=== PATIENT | female | born 1995 | race Caucasian/White ===

== ENCOUNTER 2019-02-24 18:54 | Inpatient (IN) | payer BC, MEDICAID | END 2019-02-26 13:00 | disposition home or self-care (01) | LOC: WSo 18:54 → LDRP 23:30 → WSo 19:22 → LDRP 19:22 ==

== ENCOUNTER 2021-01-29 16:42 | Emergency (ER) | payer BC, MEDICAID ==
[~2021-01-29] VITALS: Ht 175 cm; Wt 79.0 kg
[~2021-01-29 16:42] MED LIST: IBUP-844 PO
--- NOTE | 2021-01-29 18:15 | ED Abdominal Pain ---
General Chief Complaint: Abdominal/GI Problems Stated Complaint: FALL / R SIDE PAIN Nursing Triage Note: patient states she fell x10 days ago off a bar stool, patient states initially had bruising and rt arm pain. states side pain is not getting any better. Sepsis Screen: No Definite Risk Source of Information: Patient Exam Limitations: No Limitations History of Present Illness Date Seen by Provider: Jan 29, 2021 Time Seen by Provider: 18:04 Initial Comments Patient is a 26-year-old female with multiple complaints today. She presents complaining of some right lower rib pain/flank pain over the course of the last 10 days. Patient states that she fell off a barstool and then fell onto the stool injuring her right ribs. She states she feels little short of breath. Patient has a longstanding history of schizoaffective disorder with anxiety and states that she has been off meds recently. She states she has felt anxious which has caused her shortness of breath which has caused again increased anxiety. She also tells me that she has had some urinary incontinence over the course of the last couple of weeks with progressive vaginal discharge. She denies dysuria, urgency or frequency but states that she is concerned she might have an infection. 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 Patient states that she smoked marijuana to try and alleviate her right rib pain but it did not help it just made her sleepy. She also states that she took some leftover hydrocodone that did not work for her pain as well. Patient denies any auditory or visual hallucinations currently. She does admit to some paranoia. No admitted suicidal or homicidal ideation. Patient is concerned that she may be as well. Last menstrual cycle was approximately 1 month ago. Patient denies any recent fevers, chills, cough congestion. No nausea, vomiting or diarrhea. All other review of systems reviewed and negative except as stated. Timing/Duration: 1 Week Severity/Quality: Moderate Location: RUQ Radiation: Back, Flank Modifying Factors: Improves With Coughing Allergies and Home Medications Allergies Coded Allergies: No Known Drug Allergies (Unverified , 02/24/19) Home Medications Ibuprofen 600 Mg Tablet, 600 MG PO Q6H PRN for PAIN-MODERATE Prescribed by: JOSEPH BROWN on 02/26/19 0953 Patient Home Medication List Home Medication List Reviewed: Yes Review of Systems Review of Systems Constitutional: see HPI EENTM: No Symptoms Reported Respiratory: SOA at Rest Cardiovascular: No Symptoms Reported Gastrointestinal: Other ("Bloated abdomen") Genitourinary: Discharge, Incontinence Musculoskeletal: other (Right lower rib pain/flank pain) Skin: other (Bruising over the course of the last couple of weeks) Psychiatric/Neurological: Anxiety Endocrine: No Symptoms Reported All Other Systems Reviewed Negative Unless Noted: Yes Past Kfvvifc-Mytfdy-Mkxivo Hx Patient Social History Alcohol Use: Occasionally Uses Drug of Choice: smoked meth, marjuiana Smoking Status: Current Everyday Smoker Type Used: Cigarettes 2nd Hand Smoke Exposure: Yes Recent Infectious Disease Expo: No Recent Hopitalizations: No Seasonal Allergies Seasonal Allergies: No Past Medical History Surgeries: Yes (hemroidectomy, D&E, D&C) Respiratory: No Cardiac: No Neurological: No Genitourinary: No Gastrointestinal: No Musculoskeletal: No Endocrine: No HEENT: No Cancer: No Psychosocial: Yes Anxiety Integumentary: No Blood Disorders: No Family Medical History Patient reports no known family medical history. Physical Exam Vital Signs Vital Signs - First Documented 01/29/21 17:16 Temp 36.9 Pulse 80 Resp 20 B/P (MAP) 118/73 (88) O2 Delivery Room Air Capillary Refill : Less Than 3 Seconds Height/Weight/BMI Height: 5'8.00" Weight: 226lbs. 8.0oz. [id number]; 25.00 BMI Method: General Appearance: WD/WN, no apparent distress HEENT: PERRL/EOMI, normal ENT inspection Respiratory: lungs clear, normal breath sounds, no respiratory distress, no accessory muscle use Cardiovascular: regular rate, rhythm Gastrointestinal: soft, other (Patient has tenderness in the right upper quadrant/right flank over the lowest ribs. This pain radiates into the back on the right over ribs 11 and 12 along the rib margin) Back: normal inspection, CVA tenderness (R) Neurologic/Psychiatric: alert, normal mood/affect, oriented x 3 Skin: normal color, warm/dry, other (Bruising noted along the length of the left lateral thigh; no bruising of the abdomen or right flank) Progress/Results/Core Measures Results/Orders Lab Results Laboratory Tests Test 01/29/21 18:30 Range/Units Urine Color YELLOW Urine Clarity CLEAR Urine pH 6.0 5-9 Urine Specific Emery 1.015 L 1.016-1.022 Urine Protein NEGATIVE NEGATIVE Urine Glucose (UA) NEGATIVE NEGATIVE Urine Ketones NEGATIVE NEGATIVE Urine Nitrite NEGATIVE NEGATIVE Urine Bilirubin NEGATIVE NEGATIVE Urine Urobilinogen NORMAL < = 1.0 MG/DL Urine Leukocyte Esterase NEGATIVE NEGATIVE Urine RBC (Auto) NEGATIVE NEGATIVE Urine Test NEGATIVE NEGATIVE My Orders Orders - NANCY CRUZ MD Urinalysis Dipstick Only (01/29/21 18:15) Hcg,Qualitative Urine (01/29/21 18:15) Neisseria Gonorrhea Swab (01/29/21 18:15) Chest Pa/Lat (2 View) (01/29/21 19:14) Vital Signs/I&O 01/29/21 17:16 Temp 36.9 Pulse 80 Resp 20 B/P (MAP) 118/73 (88) O2 Delivery Room Air Blood Pressure Mean: 88 Progress Progress Note : Time: 19:43 Progress Note Patient seen and examined, urine test is negative urinalysis is clear. Patient is complaining of large amounts of copious vaginal discharge with some dysfunctional uterine bleeding over the course of the last couple of months. Patient states that she is having "extra periods". She is concerned about an infection. Patient self swab for GC chlamydia and is treated with 250 mg Rocephin IM as well as 1 g of Zithromax. I advised the patient that she will be contacted if her cultures are positive. Chest x-ray is reviewed for the right rib pain and discomfort in her right chest and right upper quadrant. This chest x-ray looks clear, no obvious rib fractures. No pneumothorax or effusions are noted. Patient is advised to take phvb-umo-myxgxth ibuprofen or Aleve with food as needed for pain. She verbalizes understanding. She mentions that she is concerned about fertility issues as she is having so much dysfunctional uterine bleeding and she gets "night sweats". I have advised the patient to follow-up with [facility]. She verbalizes understanding. All questions are sought and answered. Patient is stable for discharge. Departure Impression Primary Impression: Musculoskeletal chest pain Additional Impression: Vaginal discharge Disposition: 01 HOME, SELF-CARE Condition: Stable Departure-Patient Inst. Decision time for Depature: 19:45 Referrals: [facility]/ELIZABETH STEPHENS MD (PCP/Family) Primary Care Physician Patient Instructions: Bruised Rib (DC), Vaginal Discharge in Adults Add. Discharge Instructions: Take xtkd-hpt-qavgqrm ibuprofen, 2 to 3 pills which is 400 to 600 mg every 6 hours with food as needed for pain. Please call [facility] and follow-up for further medical problems. Return to the emergency room if you have worsening pain especially associated with shortness of breath, nausea vomiting, abdominal pain fever or any other emergent concerning symptoms NANCY CRUZ MD Jan 29, 2021 18:15
[2021-01-29 18:47] LABS: HCG,QUALITATIVE URINE NEGATIVE (NEGATIVE)
[2021-01-29 18:53] LABS: CLARITY,URINE CLEAR; COLOR,URINE YELLOW
[2021-01-29 18:54] LABS: BILIRUBIN,URINE NEGATIVE (NEGATIVE); GLUCOSE, URINE (UA) NEGATIVE (NEGATIVE); KETONES,URINE NEGATIVE (NEGATIVE); LEUKOCYTE ESTERASE ,URINE NEGATIVE (NEGATIVE); NITRITE,URINE NEGATIVE (NEGATIVE); PROTEIN,URINE NEGATIVE (NEGATIVE)
--- NOTE | 2021-01-29 19:40 | Diagnostic Imaging Report ---
PATIENT HISTORY: right rib pain, sob. TECHNIQUE: Two views of the chest. COMPARISON: None FINDINGS: The lung volumes are normal. No focal consolidation is seen. No large pleural effusion or pneumothorax is seen. The cardiomediastinal silhouette is normal in size and contour. No acute osseous abnormality is seen. IMPRESSION: No acute pulmonary abnormality seen. Dictated by: Dictated on workstation # [id number]
[2021-01-29] MEDS ORDERED: cefTRIAXone 250 MG/ML vial (IM ONLY) IM ONE (19:45)
[2021-01-29] MEDS ORDERED: LIDOCAINE 1% INJ 20 ML 20 ML VIAL INJ ONE (19:45)
[2021-01-29] MEDS ORDERED: AZITHROMYCIN 250 MG TAB (ZITHROMAX) PO ONE (19:54)
[2021-01-29 20:07] VITALS: BP 115/71
[2021-01-30] MEDS ORDERED: AZITHROMYCIN 250 MG TAB (ZITHROMAX) PO SCH (09:00)
== END 2021-01-29 20:07 | disposition home or self-care (01) ==
LOC: EDUNIT# 16:42 → ER 16:43
DX: S70.12XA Contusion of left thigh, initial encounter (principal); R07.9 Chest pain, unspecified; N89.8 Other specified noninflammatory disorders of vagina; F41.9 Anxiety disorder, unspecified; F17.210 Nicotine dependence, cigarettes, uncomplicated; W08.XXXA Fall from other furniture, initial encounter
CPT/HCPCS: 36415; 71046; 81002; 84703; 87591

== ENCOUNTER 2022-01-21 06:55 | Inpatient (IN) | payer MEDICAID ==
[2022-01-21] VITALS (41 sets, daily range): BP systolic 101–151; BP diastolic 59–90
[~2022-01-21] VITALS: Ht 172 cm; Wt 96.4 kg
--- OUTSIDE RECORDS SUMMARY | 2022-01-21 06:59 | XMS REPORT | Clinical Summary ---
Author Author [facility] Address Unknown Phone Unavailable Care Team Providers Care Doughnut Fryer Name Role Phone Unassigned, None PCP Unavailable Allergies No known active allergies Medications End Date Status Medication Sig Dispensed Refills Start Date Active lurasidone (LATUDA) 20 MG Take 1 tablet 30 tablet 0 tabletIndications: (20 mg total) 1 Bipolar II disorder by mouth daily with dinner. Indications: Bipolar II disorder Active Problems Problem Noted Date Irritable bowel syndrome with constipation Suicidal ideation 09/08/2021 Psychophysiological insomnia 09/08/2021 Cocaine use disorder, severe, dependence 09/08/2021 Nicotine use disorder 09/08/2021 At risk for intentional self-harm 09/08/2021 PTSD (post-traumatic stress disorder) 09/08/2021 Bipolar II disorder, most recent episode hypomanic 1 BEE (generalized anxiety disorder) 09/07/2021 Comments Yes Immunizations Name Administration Dates Next Due COVID-19 mRNA LNP-S PF 09/10/2021 (Deferred: Patie nt Refused) (Pfizer-Purple Cap) Social History Date Tobacco Use Types Packs/Day Years Used Current Every Day Smoker Cigarettes 0.25 Smokeless Tobacco: Never Used Comments Alcohol Use Standard Drinks/Week Not Currently 0 (1 standard drink = 0.6 o z pure alcohol) Housing Stability Answer Date Recorded In the last 12 months, was there a time when you Patient r efused 09/10/2021 were not able to pay the mortgage or re nt on time? In the last 12 months, how many places have you Not asked lived? In the last 12 months, was there a time when you Patient r efused 09/10/2021 did not [address] a steady place to sleep or slept in a [place] [facility] [place] (including now)? Control Partners Comments Sexually Active Male Not Currently Comments Yes Sex Assigned at Date Recorded Female 09/16/2021 8:51 AM CDT Industry Job Start Date Occupation Not on file Not on file Not on file Last Filed Vital Signs Reading Time Taken Comments Vital Sign 117/64 09/10/2021 8:23 AM CDT Blood Pressure 101 09/10/2021 8:23 AM CDT Pulse 36.7 C (98.1 F) 09/10/2021 8:22 AM CDT Temperature 14 09/10/2021 8:22 AM CDT Respiratory Rate 100% 09/10/2021 8:22 AM CDT Oxygen Saturation - - Inhaled Oxygen Concentration 78.5 kg (173 lb) 09/07/2021 6:45 PM CDT Weight 172.7 cm (5' 8") 09/07/2021 6:45 PM CDT Height 26.3 09/07/2021 6:45 PM CDT Body Mass Index Plan of Treatment Health Maintenance Due Date Last Done Comments HIV Screening 1997 Varicella Vaccines (1 of 1998 2 - 2-dose childhood series) COVID-19 Vaccine (1) 2002 Pneumo-Vaccine: 65+Yrs (1 2003 of 2 - PPSV23) Pneumo-Vaccine: Peds (0-5 2003 Yrs) & At-Risk Patients (6-64 Yrs) (1 of 2 - PPSV23) HPV Vaccines (1 - 2-dose 2008 series) Hepatitis C Screening 2015 DTaP,Tdap,and Td Vaccines 2016 (1 - Tdap) MMR Vaccines-Adult 2016 Cervical Cancer Screening 2018 Influenza Vaccine (#1) 2021 HIB Vaccines Aged Out No longer eligible based on patient's age to complete this topic IPV Vaccines Aged Out No longer eligible based on patient's age to complete this topic Meningococcal Vaccine Aged Out No longer eligib le based on patient's age to complete this topic Rotavirus Vaccines Aged Out No longer eligible based on patient's age to complete this topic Results Not on filefrom Last 3 Months Insurance Type Payer Benefit Subscriber ID Effective Phone Address Plan / Dates Group [place] [id number] 2021- [facility] [address] [place] [address] Advance Directives For more information, please contact: [phone] Patient Safety Associate Explanation Type Date Recorded Advance Directives and Living Will Power of Machine Packager Date Inactivated Comments Code Status Date Activated Full Code 09/10/2021 10:25 AM 09/10/2021 10:25 AM Full Code 09/07/2021 7:48 PM Care Teams Start Date End Date Doughnut Fryer Relationship Specialty 09/07/21 Unassigned, None PCP - General [place]
[2022-01-21] MEDS ORDERED: MINERAL OIL 30 ML OIL TOP PRN (07:45)
[2022-01-21] MEDS ORDERED: OXYTOCIN PRE-MIX DRIP 500 ML IV ONE (07:45)
[2022-01-21] MEDS ORDERED: D5 LR IV SOLUTION 1,000 ML IV SCH (07:45)
[2022-01-21] MEDS ORDERED: D5 LR IV SOLUTION 1,000 ML IV ONE (07:45)
[2022-01-21 07:54] LABS: BASOPHILS % (AUTO) 0 % (0-10); EOSINOPHILS # (AUTO) 0.2 10^3/uL (0.0-0.3); EOSINOPHILS % (AUTO) 1 % (0-10); HEMATOCRIT 35 % (35-52); HEMOGLOBIN 11.5 g/dL (11.5-16.0); LYMPHOCYTES # (AUTO) 2.5 10^3/uL (1.0-4.0); LYMPHOCYTES % (AUTO) 23 % (12-44); MEAN CORPUSCULAR HEMOGLOBIN 30 pg (25-34); MEAN CORPUSCULAR HGB CONC 33 g/dL (32-36); MEAN CORPUSCULAR VOLUME 90 fL (80-99); MEAN PLATELET VOLUME 11.1 fL (9.0-12.2); MONOCYTES # (AUTO) 0.9 10^3/uL (0.0-1.0); MONOCYTES % (AUTO) 8 % (0-12); NEUTROPHILS # (AUTO) 7.2 10^3/uL (1.8-7.8); NEUTROPHILS % (AUTO) 66 % (42-75); PLATELET COUNT 168 10^3/uL (130-400)
[2022-01-21] MEDS: OXYTOCIN PRE-MIX DRIP 500 ML IV SCH ×2 (08:31→15:10)
--- NOTE | 2022-01-21 08:43 | History & Physical-OB ---
OB - Chief Complaint & HPI Date/Time Date of Admission: Date of Admission: Jan 21, 2022 at 06:55 Date seen by a Provider: Jan 21, 2022 Time Seen by a Provider: 08:30 Chief Complaint/History OB-Reason for Admission/Chief: Induction of Labor Hx : 5 Hx Para: 3 Expected Date of Delivery: Jan 28, 2022 Gestational Age in Weeks: 39 Gestational Age in Days: 0 Indication for induction: other (Elective) History of Labs O+, Ab neg Rub Imm HIV/RPR/HepB/C NR GBS neg Allergies and Home Medications Allergies Coded Allergies: No Known Drug Allergies (Unverified , 02/24/19) Patient Home Medication List Home Medication List Reviewed: Yes Ibuprofen (Ibu) 600 Mg Tablet, 600 MG PO Q6H PRN for PAIN-MODERATE Prescribed by: JOSEPH BROWN on 02/26/19 0918 OB - History Hx of Present Ultrasounds: Other (35 week US, Late care) Obstetrical Complications: Other (late care, Substance abuse in ) Obstetrical History Hx : 5 Hx Para: 3 Number of Living Children: 3 Hx Total # of Abortions (Spona: 1 Delivery History Hx Small for Gestational Age I: Yes Patient Past Medical History Substance abuse in Social History/Family History Recreational Drug Use: Yes (Cocaine) Smoking Cessation: Current every day smoker 2nd Hand Smoke Exposure: Yes Immunizations Influenza Vaccine Up-to-Date: No; Not Current Hepatitis A: No Hepatitis B: No Rubella: immune RPR/VDRL: Negative GBS Status: Negative HBsAG: Negative OB - Admission Exam Physical Exam Vitals: Vital Signs 01/21/22 08:09 Temp 36.2 Pulse 109 Resp 18 Pulse Ox 99 O2 Delivery Room Air HEENT: NCAT Heart: Rhythm Normal Lungs: Clear Abdomen: Gravid Cervical Dilatation: 4cm Effacement: 75% Station: 0 Membranes: Intact Accelerations: Accelerations Present Decelerations: No Decelerations Short Term Variability: Present Prototype Model Maker Variability: Average (6-25) Contractions on Admission: < 5 Minutes Apart Intensity: Moderate Sainz Scoring Tool (Modified) Dilation (cm): 3-4cm (2) Effacement (%): 51-79% (2) Descent/Station: -1,0 (2) Cervix Consistency: Medium(1) Cervix Position: Middle/Mid-Position (1) Add 1 point for: Each previous vaginal delivery (1) Sainz Score: 9 Labs Laboratory Tests Test 01/21/22 07:25 Range/Units White Blood Count 11.0 4.3-11.0 10^3/uL Red Blood Count 3.87 3.80-5.11 10^6/uL Hemoglobin 11.5 11.5-16.0 g/dL Hematocrit 35 35-52 % Mean Corpuscular Volume 90 80-99 fL Mean Corpuscular Hemoglobin 30 25-34 pg Mean Corpuscular Hemoglobin Concent 33 32-36 g/dL Red Cell Distribution Width 13.4 10.0-14.5 % Platelet Count 168 130-400 10^3/uL Mean Platelet Volume 11.1 9.0-12.2 fL Immature Granulocyte % (Auto) 2 % Neutrophils (%) (Auto) 66 42-75 % Lymphocytes (%) (Auto) 23 12-44 % Monocytes (%) (Auto) 8 0-12 % Eosinophils (%) (Auto) 1 0-10 % Basophils (%) (Auto) 0 0-10 % Neutrophils # (Auto) 7.2 1.8-7.8 10^3/uL Lymphocytes # (Auto) 2.5 1.0-4.0 10^3/uL Monocytes # (Auto) 0.9 0.0-1.0 10^3/uL Eosinophils # (Auto) 0.2 0.0-0.3 10^3/uL Basophils # (Auto) 0.0 0.0-0.1 10^3/uL Immature Granulocyte # (Auto) 0.2 H 0.0-0.1 10^3/uL OB - Assessment/Plan/Diagnosis Assessment Assessment: induction of labor Admission Dx three Trimester 39 week gestation Admission Status: Inpatient Order (span 2 midnights) Reason for Inpatient Admission: Labor Plan Other Plan 27 yo @ 39.0 wga here for elective IOL Plan - Pitocin augmentation - Epidural ok when patient desires - GBS neg ELIZABETH JUARES MD Jan 21, 2022 08:43
[2022-01-21 09:11] LABS: AMPHETAMINE SCREEN, URINE NEGATIVE (NEGATIVE); BARBITURATE SCREEN URINE NEGATIVE (NEGATIVE); BENZODIAZEPINES SCREEN URINE NEGATIVE (NEGATIVE); CANNABINOID SCREEN, URINE NEGATIVE (NEGATIVE); COCAINE SCREEN URINE NEGATIVE (NEGATIVE); METHADONE STAT NEGATIVE (NEGATIVE); METHAMPHETAMINE SCREEN URINE S NEGATIVE (NEGATIVE); OPIATE SCREEN URINE NEGATIVE (NEGATIVE); OXYCODONE STAT NEGATIVE (NEGATIVE); PROPOXYPHENE STAT NEGATIVE (NEGATIVE); TRICYCLIC ANTIDEPRESSANTS SCRE NEGATIVE (NEGATIVE)
[2022-01-21] MEDS ORDERED: fentaNYL 2 mcg/ml BUPIVA 0.125 100 ML ONE (11:58)
--- NOTE | 2022-01-21 12:23 | Labor Progress Note ---
Labor Progress Note Labor Progress Note Date Seen by Provider: Jan 21, 2022 Time Seen by Provider: 11:45 Subjective: Pt states that she had some leaking of fluid and increase in pressure. She is ready for her epidural Objective: Assessment/Plan: Kirstin Sweeney is a (27 /Para 5/3 ,Gestational Age (wks)39.0 here for IOL CEFM/TOCO Continue pitocin protocol Anesthesia: plan for epidural AROM after epidural Anticipate vaginal delivery. Vitals - Labs Vital Signs - I&O Vital Signs Date Time Temp Pulse Resp B/P (MAP) Pulse Ox O2 Delivery O2 Flow Rate FiO2 01/21/22 11:51 100 18 116/69 (85) Room Air 01/21/22 11:36 100 18 115/74 (88) Room Air 01/21/22 11:21 101 18 117/70 (86) Room Air 01/21/22 11:05 100 18 117/72 (87) Room Air 01/21/22 10:52 36.1 96 18 115/64 (81) Room Air 01/21/22 10:35 100 18 109/65 (80) Room Air 01/21/22 10:21 91 18 115/68 (84) Room Air 01/21/22 10:07 100 18 118/75 (89) Room Air 01/21/22 09:50 105 18 114/67 (83) Room Air 01/21/22 09:35 97 18 114/68 (83) Room Air 01/21/22 09:22 95 18 105/66 (79) Room Air 01/21/22 09:05 114 18 121/90 (100) Room Air 01/21/22 08:50 102 18 110/69 (83) Room Air 01/21/22 08:47 36.2 109 18 106/60 (75) 99 Room Air 01/21/22 08:35 102 18 119/74 (89) Room Air 01/21/22 08:09 36.2 109 18 99 Room Air Labs Laboratory Tests 01/21/22 07:00: Urine Opiates Screen NEGATIVE, Urine Oxycodone Screen NEGATIVE, Urine Methadone Screen NEGATIVE, Urine Propoxyphene Screen NEGATIVE, Urine Barbiturates Screen NEGATIVE, Ur Tricyclic Antidepressants Screen NEGATIVE, Urine Phencyclidine Screen NEGATIVE, Urine Amphetamines Screen NEGATIVE, Urine Methamphetamines Screen NEGATIVE, Urine Benzodiazepines Screen NEGATIVE, Urine Cocaine Screen N EGATIVE, Urine Cannabinoids Screen NEGATIVE 01/21/22 07:25: White Blood Count 11.0, Red Blood Count 3.87, Hemoglobin 11.5, Hematocrit 35, Mean Corpuscular Volume 90, Mean Corpuscular Hemoglobin 30, Mean Corpuscular Hemoglobin Concent 33, Red Cell Distribution Width 13.4, Platelet Count 168, Mean Platelet Volume 11.1, Immature Granulocyte % (Auto) 2, Neutrophils (%) (Auto) 66, Lymphocytes (%) (Auto) 23, Monocytes (%) (Auto) 8, Eosinophils (%) (Auto) 1, Basophils (%) (Auto) 0, Neutrophils # (Auto) 7.2, Lymphocytes # (Auto) 2.5, Monocytes # (Auto) 0.9, Eosinophils # (Auto) 0.2, Basophils # (Auto) 0.0, Immature Granulocyte # (Auto) 0.2H ELIZABETH JUARES MD Jan 21, 2022 12:23
[2022-01-21] MEDS ORDERED: BUPIVACAINE 0.25% 30 ML (SENSORCAINE) VIAL ONE (12:55)
[2022-01-21] MEDS ORDERED: fentaNYL INJ 100 MCG/2 ML AMP ONE (12:55)
[2022-01-21] MEDS ORDERED: MINERAL OIL CONCENTRATE 99.9% 15 ML UDC TOP PRN (13:00)
[2022-01-21] MEDS ORDERED: NALOXONE 0.4 MG/ML 1 ML (NARCAN) VIAL IV PRN (13:30)
[2022-01-21] MEDS ORDERED: diphenhydrAMINE 50 MG/ML INJ (BENADRYL) IV PRN (13:30)
[2022-01-21] MEDS ORDERED: CATHETER FLUSH 10 ML SYR IV PRN (13:30)
[2022-01-21] MEDS ORDERED: fentaNYL 2 mcg/ml BUPIVA 0.125 100 ML IV SCH (13:30)
[2022-01-21] MEDS ORDERED: ONDANSETRON 4 MG/2 ML (SDV) Z0FRAN IV PRN (13:30)
[2022-01-21] MEDS ORDERED: LACTATED RINGERS 1,000 ML IV ONE ×2 (13:30→16:46)
[2022-01-21] MEDS ORDERED: CATHETER FLUSH 10 ML SYR IV SCH ×3 (14:00→22:00)
[2022-01-21] MEDS ORDERED: LIDOCAINE 1% INJ 50 ML (XYLOCAINE) VIAL ONE (14:16)
--- NOTE | 2022-01-21 14:51 | OB Labor & Delivery Record ---
Vag Delivery Note Vag Delivery Note Date of Delivery: 01/21/22 Preoperative Diagnosis: Kirstin Sweeney is a (27 /Para 5 / 3,Gestational Age (wks)39.0 here for Elective IOL Postoperative Diagnosis: Same Surgeon: ELIZABETH JUARES MD Medicaid Biller: Mars Cardoso [id number] Anesthesia: Epidural Delivery Type: @ 1429 Findings: Viable female , apgars 8/9, weight 6#10, 3015 grams Lacerations: Right periurethral laceration Intact placenta with 3 vessel cord. No nuchal cord, body cord or shoulder d ystocia Estimated Blood Loss: 100 ml Complications: None Condition: Stable Description of Procedure: The patient is a 27 year old female who presented for elective IOL. She was admitted and informed consent was obtained. Her labor course was unremarkable. She progressed to complete dilatation and began to push. She was then set up for delivery. The infant's head was delivered atraumatically in the MARYAN position. The shoulders and remainder of the 's body were then delivered without difficulty. Upon delivery, the head was held below the level of the perineum and the mouth and nares were bulb suctioned. The cord was doubly clamped and cut by FOB after 2 min delay and the infant was attended to by the pediatric staff on maternal abdomen. An intact placenta with 3-vessel cord delivered via Gail and there was found to be minimal bleeding.~ Vigorous fundal massage was performed and the fundus was found to be firm. IV oxytocin was given. Examination of the vagina and perineum revealed a small right periurethral laceration that did not require repair. Following the repair, sponge, instrument and needle counts were correct. Mom and baby were both in stable condition in the labor suite. Vitals - Labs Vital Signs - I&O Vital Signs Date Time Temp Pulse Resp B/P (MAP) Pulse Ox O2 Delivery O2 Flow Rate FiO2 01/21/22 13:39 97 18 136/74 (94) 93 Room Air 01/21/22 13:30 92 18 101/61 (74) 100 Room Air 01/21/22 13:21 36.4 100 18 105/60 (75) 99 Room Air 01/21/22 13:18 109 18 108/67 (81) 100 Room Air 01/21/22 13:16 99 18 104/66 (79) 100 Room Air 01/21/22 13:12 99 18 120/71 (87) 99 Room Air 01/21/22 13:09 102 18 120/78 (92) 97 Room Air 01/21/22 13:06 100 18 123/59 (80) 95 Room Air 01/21/22 13:04 100 18 129/68 (88) 98 Room Air 01/21/22 13:01 96 18 119/76 (90) 99 Room Air 01/21/22 12:50 93 18 121/72 (88) Room Air 01/21/22 12:36 93 18 112/66 (81) Room Air 01/21/22 12:20 90 18 108/65 (79) Room Air 01/21/22 11:51 100 18 116/69 (85) Room Air 01/21/22 11:36 100 18 115/74 (88) Room Air 01/21/22 11:21 101 18 117/70 (86) Room Air 01/21/22 11:05 100 18 117/72 (87) Room Air 01/21/22 10:52 36.1 96 18 115/64 (81) Room Air 01/21/22 10:35 100 18 109/65 (80) Room Air 01/21/22 10:21 91 18 115/68 (84) Room Air 01/21/22 10:07 100 18 118/75 (89) Room Air 01/21/22 09:50 105 18 114/67 (83) Room Air 01/21/22 09:35 97 18 114/68 (83) Room Air 01/21/22 09:22 95 18 105/66 (79) Room Air 01/21/22 09:05 114 18 121/90 (100) Room Air 01/21/22 08:50 102 18 110/69 (83) Room Air 01/21/22 08:47 36.2 109 18 106/60 (75) 99 Room Air 01/21/22 08:35 102 18 119/74 (89) Room Air 01/21/22 08:09 36.2 109 18 99 Room Air Labs Laboratory Tests 01/21/22 07:00: Urine Opiates Screen NEGATIVE, Urine Oxycodone Screen NEGATIVE, Urine Methadone Screen NEGATIVE, Urine Propoxyphene Screen NEGATIVE, Urine Barbiturates Screen NEGATIVE, Ur Tricyclic Antidepressants Screen NEGATIVE, Urine Phencyclidine Screen NEGATIVE, Urine Amphetamines Screen NEGATIVE, Urine Methamphetamines Screen NEGATIVE, Urine Benzodiazepines Screen NEGATIVE, Urine Cocaine Screen NEGATIVE, Urine Cannabinoids Screen NEGATIVE 01/21/22 07:25: White Blood Count 11.0, Red Blood Count 3.87, Hemoglobin 11.5, Hematocrit 35, Mean Corpuscular Volume 90, Mean Corpuscular Hemoglobin 30, Mean Corpuscular Hemoglobin Concent 33, Red Cell Distribution Width 13.4, Platelet Count 168, Mean Platelet Volume 11.1, Immature Granulocyte % (Auto) 2, Neutrophils (%) (Auto) 66, Lymphocytes (%) (Auto) 23, Monocytes (%) (Auto) 8, Eosinophils (%) (Auto) 1, Basophils (%) (Auto) 0, Neutrophils # (Auto) 7.2, Lymphocytes # (Auto) 2.5, Monocytes # (Auto) 0.9, Eosinophils # (Auto) 0.2, Basophils # (Auto) 0.0, Immature Granulocyte # (Auto) 0.2H ELIZABETH JUARES MD Jan 21, 2022 14:51
[2022-01-21] MEDS ORDERED: OXYTOCIN PRE-MIX DRIP 500 ML IV SCH (18:00)
[2022-01-21] MEDS ORDERED: WITCH HAZEL(TUCKS) 40 EA JAR TOP PRN (18:00)
[2022-01-21] MEDS ORDERED: BENZOCAINE/MENTHOL (DERMOPLAST) 56 ML CAN TP PRN (18:00)
[2022-01-21] MEDS ORDERED: MEASLES,MUMPS,RUBELLA 1 EA INJ SQ ONE (18:00)
[2022-01-21] MEDS ORDERED: TETANUS,DIPTH,PERTUSS P/F (BOOSTRIX) 0.5 ML VIAL IM ONE (18:00)
[2022-01-21] MEDS: ACETAMINOPHEN 500 MG TAB (TYLENOL) PO SCH (18:30)
[2022-01-21] MEDS: IBUPROFEN 600 MG (MOTRIN) TAB PO SCH (18:31)
[2022-01-21] MEDS: DOCUSATE SODIUM 100 MG (COLACE) CAP PO SCH (21:00)
[2022-01-22] MEDS: ACETAMINOPHEN 500 MG TAB (TYLENOL) PO SCH ×3 (00:01→12:15)
[2022-01-22] MEDS: IBUPROFEN 600 MG (MOTRIN) TAB PO SCH ×3 (00:01→12:15)
[2022-01-22 04:09] VITALS: BP 99/58
[2022-01-22 06:39] LABS: BASOPHILS # (AUTO) 0.1 10^3/uL (0.0-0.1); BASOPHILS % (AUTO) 1 % (0-10); EOSINOPHILS # (AUTO) 0.1 10^3/uL (0.0-0.3); EOSINOPHILS % (AUTO) 1 % (0-10); HEMATOCRIT 37 % (35-52); HEMOGLOBIN 11.8 g/dL (11.5-16.0); LYMPHOCYTES # (AUTO) 2.9 10^3/uL (1.0-4.0); LYMPHOCYTES % (AUTO) 28 % (12-44); MEAN CORPUSCULAR HEMOGLOBIN 29 pg (25-34); MEAN CORPUSCULAR HGB CONC 32 g/dL (32-36); MEAN CORPUSCULAR VOLUME 92 fL (80-99); MEAN PLATELET VOLUME 11.3 fL (9.0-12.2); MONOCYTES # (AUTO) 0.8 10^3/uL (0.0-1.0); MONOCYTES % (AUTO) 8 % (0-12); NEUTROPHILS # (AUTO) 6.5 10^3/uL (1.8-7.8); NEUTROPHILS % (AUTO) 62 % (42-75); PLATELET COUNT 146 10^3/uL (130-400); WHITE BLOOD COUNT 10.5 10^3/uL (4.3-11.0)
--- NOTE | 2022-01-22 07:49 | Discharge Summary ---
Diagnosis/Chief Complaint Date of Admission Jan 21, 2022 at 06:55 Date of Discharge January 22, 2022 Admission Diagnosis Admission Diagnosis 1. Intrauterine at 39 weeks gestation Discharge Diagnosis 1. Intrauterine at 39 weeks gestation Chief Complaint/HPI Chief Complaint/HPI 27-year-old 5 now term 4 who presented to labor and delivery during the morning of January 21 for induction of labor. Her EDC is noted to be January 28, 2022. Her GBS status obtained through [facility] was negative. Discharge Summary-OBS Procedures 1. Epidural per anesthesia 2. Spontaneous vaginal delivery 3. Right-sided periurethral laceration Discharge Physical Examination Allergies: Coded Allergies: No Known Drug Allergies (Unverified , 02/24/19) Vitals & I&Os Intake and Output 01/21/22 23:59 Intake Total 3000 ml Balance 3000 ml Vital Sign - Last 12Hours Date Time Temp Pulse Resp B/P (MAP) Pulse Ox O2 Delivery O2 Flow Rate FiO2 01/22/22 04:09 36.2 108 18 99/58 (72) 97 Room Air General Appearance: No Acute Distress Respiratory: Clear to Auscultation Abdominal: Soft (with uterus firm) Hospital Course Was the Problem List Reviewed?: Yes patient was admitted in the morning of January 21, 2022 for induction of labor. She ultimately underwent amniotomy and epidural per anesthesia. She required Pitocin augmentation. Eventually she went on to deliver spontaneous vaginal term viable female. Delivery was accomplished at 1429. Infant was noted to have Apgars of 8 at 1 minute and 9 at 5 minutes. Infant had a weight of 6 lbs. 10 oz. Following delivery she underwent routine care orders. She was noted to complain of her lumbar back slightly from epidural placement. She overall was ambulatory and had no chest pain or shortness of breath. She had tolerated regular diet. She was ready for dismissal during the afternoon of January 22, 2022. Labs Laboratory Tests 01/22/22 06:00: White Blood Count 10.5, Red Blood Count 4.01, Hemoglobin 11.8, Hematocrit 37, Mean Corpuscular Volume 92, Mean Corpuscular Hemoglobin 29, Mean Corpuscular Hemoglobin Concent 32, Red Cell Distribution Width 13.5, Platelet Count 146, Mean Platelet Volume 11.3, Immature Granulocyte % (Auto) 1, Neutrophils (%) (Auto) 62, Lymphocytes (%) (Auto) 28, Monocytes (%) (Auto) 8, Eosinophils (%) (Auto) 1, Basophils (%) (Auto) 1, Neutrophils # (Auto) 6.5, Lymphocytes # (Auto) 2.9, Monocytes # (Auto) 0.8, Eosinophils # (Auto) 0.1, Basophils # (Auto) 0.1, Immature Granulocyte # (Auto) 0.1 Discharge Instructions to patient/family Please see electronic discharge instructions given to patient. Discharge Medications Reviewed and agree with Discharge Medication list on patient's Discharge Instruction sheet DENNYS PEDERSEN MD Jan 22, 2022 07:49
[2022-01-22] MEDS ORDERED: IBUP-844 PO (07:51)
--- NOTE | 2022-01-22 07:52 | Discharge Inst-Women's Service ---
Discharge Inst-Women's Serv Depart Medication/Instructions New, Converted or Re-Newed RX: Transmitted to Pharmacy ([facility] in [place]) Problems Reviewed?: Yes Consults/Follow Up Additional Follow Up: Yes (Dr. Garcia in 6 weeks) Activity Activity: Activity as Tolerated Driving Instructions: No Driving for 1 Week Nothing Inside Vagina: No [place] (for 6 weeks) Diet Discharge Diet: Regular Diet Return to The Hospital For: as below Symptoms to Report to : Bleeding Excessive, Fever Over 101 Degrees F, Vaginal Discharge Foul For Any Problems or Questions: Contact Your Physician DENNYS PEDERSEN MD Jan 22, 2022 07:52
[2022-01-22 09:16] VITALS: BP 122/51
[2022-01-22] MEDS: DOCUSATE SODIUM 100 MG (COLACE) CAP PO SCH (09:17)
[2022-01-22 12:15] VITALS: BP 114/70
--- NOTE | 2022-01-22 12:16 | Anesthesia-Regional Post-Op ---
Regional Patient Condition Mental Status: Alert, Oriented x3 Circulation: Same as Pre-Op Headache: Absent Sensation: Full Recovery Motor Block: Absent Post Op Complications Complications None Follow Up Care/Instructions Patient Instructions None needed. Anesthesia/Patient Condition Patient is doing well, no complaints, stable vital signs, no apparent adverse anesthesia problems. LANDEN DISLA DO Jan 22, 2022 12:16
== END 2022-01-22 17:35 | disposition home or self-care (01) | DRG 807 ==
LOC: LDRP 06:55
PROVIDERS: ADMIT Family Medicine; ATTEND Family Medicine
PROC: 10E0XZZ Delivery of Products of Conception, External Approach (ICD-10-PCS; principal; 2022-01-21)
PROC: 10907ZC Drainage of Amniotic Fluid, Therapeutic from Products of Conception, Via Natural or Artificial Opening (ICD-10-PCS; 2022-01-21)
PROC: 0UQMXZZ Repair Vulva, External Approach (ICD-10-PCS; 2022-01-21)
DX: O99.334 Smoking (tobacco) complicating childbirth (principal); Z37.0 Single live birth; F17.210 Nicotine dependence, cigarettes, uncomplicated; Z3A.39 39 weeks gestation of pregnancy; O71.82 Other specified trauma to perineum and vulva
CPT/HCPCS: 36415; 80306; 85025; 86780; 86850; 86900; 86901